=== PATIENT | male | born 1985 | race Caucasian/White ===

== ENCOUNTER 2018-09-26 20:24 | Emergency (ER) | payer SELFPAY ==
[~2018-09-26] VITALS: Ht 177.8 cm; Wt 117.9 kg
[~2018-09-26 20:24] MED LIST: ACTOS15 MG PO; HUMULIN R100 U/ML; LIPITOR20 MG PO; LISINOPRIL10 MG PO; NORCO 325 MG-51 TAB PO; PARAFON FORTE500 MG PO; TOBREX OPHTH S2.5 ML OPH
[2018-09-26 20:28] VITALS: BP 164/98
[2018-09-26 20:58] LABS: BILIRUBIN NEGATIVE (NEGATIVE); BLOOD 2+ (NEGATIVE); CLARITY CLEAR (CLEAR); COLOR YELLOW (YELLOW); GLUCOSE 2+ (NEGATIVE); KETONE NEGATIVE (NEGATIVE); LEUKO ESTERASE NEGATIVE (NEGATIVE); NITRITE NEGATIVE (NEGATIVE); SPECIFIC GRAVITY >= 1.030 (1.005-1.030); UROBILINOGEN 0.2 E.U./dl (0.2-1.0)
[2018-09-26 21:10] LABS: BACTERIA 2+; MUCOUS 1+
[2018-09-26] MEDS ORDERED: CIPRO500 MG PO (21:24)
== END 2018-09-26 21:40 | disposition home or self-care (01) ==
LOC: ED 20:24
PROVIDERS: Physician Assistant
DX: N34.2 Other urethritis (principal); E11.9 Type 2 diabetes mellitus without complications; Z88.0 Allergy status to penicillin; Z79.4 Long term (current) use of insulin

== ENCOUNTER 2020-02-12 16:46 | Emergency (ER) | payer SELFPAY ==
[~2020-02-12] VITALS: Ht 175.2 cm
[~2020-02-12 16:46] MED LIST changes: +CIPRO500 MG PO
[2020-02-12 16:56] VITALS: BP 183/98
[2020-02-12] MEDS ORDERED: ROBAXIN-750750 MG PO (21:43)
[2020-02-12] MEDS ORDERED: IBUPROFEN600 MG PO (21:43)
== END 2020-02-12 22:13 | disposition home or self-care (01) ==
LOC: ED 16:46
DX: S13.9XXA Sprain of joints and ligaments of unspecified parts of neck, initial encounter (principal); M25.512 Pain in left shoulder; Z88.0 Allergy status to penicillin; X50.0XXA Overexertion from strenuous movement or load, initial encounter; Y93.89 Activity, other specified; Y92.89 Other specified places as the place of occurrence of the external cause; Y99.8 Other external cause status

== ENCOUNTER 2020-03-30 09:05 | Emergency (ER) | payer SELFPAY ==
[~2020-03-30] VITALS: Ht 177.8 cm; Wt 117.9 kg
[~2020-03-30 09:05] MED LIST changes: +IBUPROFEN600 MG PO; +ROBAXIN-750750 MG PO
[2020-03-30 09:12] VITALS: BP 156/72
[2020-03-30] MEDS ORDERED: PREDNISONE50 MG PO (10:17)
[2020-03-30] MEDS ORDERED: CYCLOBENZAPRINE5 M3 PO (10:17)
== END 2020-03-30 10:53 | disposition home or self-care (01) ==
LOC: ED 09:05
DX: S46.912A Strain of unspecified muscle, fascia and tendon at shoulder and upper arm level, left arm, initial encounter (principal); Z88.0 Allergy status to penicillin; X58.XXXA Exposure to other specified factors, initial encounter; Y93.89 Activity, other specified; Y92.89 Other specified places as the place of occurrence of the external cause; Y99.8 Other external cause status

== ENCOUNTER 2020-06-09 06:12 | Inpatient (IN) | payer MEDICAID ==
[~2020-06-09] VITALS: Ht 177.8 cm; Wt 107.6 kg
[~2020-06-09 06:12] MED LIST changes: +CYCLOBENZAPRINE5 M3 PO; -HUMULIN R100 U/ML; +HUMULIN R100 UNIT/1 SQ; +PREDNISONE50 MG PO
[2020-06-09 06:26] VITALS: BP 168/100
[2020-06-09 06:52] LABS: BASO % 0.6 % (0.0-1.0); EOS # 0.1 10*3/uL (0.0-0.4); EOS % 2.4 % (1.0-4.0); HEMATOCRIT 43.6 % (42.0-52.0); LYMPH # 1.4 10*3/uL (1.3-4.4); LYMPH % 26.6 % (27.0-41.0); MEAN CELL VOLUME 78.8 fl (80.0-94.0); MEAN CORPUSCULAR HGB 25.7 pg (27.0-31.0); MEAN CORPUSCULAR HGB CONC 32.6 g/dl (33.0-37.0); MEAN PLATELET VOLUME 9.4 fl (9.6-12.3); MONO # 0.6 10*3/uL (0.1-1.0); MONO % 10.7 % (3.0-9.0); NEUT # 3.2 10*3/uL (2.3-7.9); NEUT % 59.3 % (47.0-73.0); PLATELET COUNT AUTOMATED 422 10*3/uL (130-400); RED BLOOD COUNT 5.53 10*6/uL (4.50-5.90); RED CELL DISTRI WIDTH 12.9 % (0-14.5); WHITE BLOOD COUNT 5.3 10*3/uL (4.8-10.8)
[2020-06-09 07:08] LABS: ALBUMIN 2.7 gm/dl (3.1-4.5); ALKALINE PHOSPHATASE 70 U/L (45-117); BUN 14 mg/dl (7-24); CHLORIDE 104 mmol/L (98-107); CREATININE 0.86 mg/dL (0.70-1.30); SGOT/AST 13 IU/L (3-35); SGPT/ALT 30 U/L (12-78); SODIUM 137 mmol/L (136-145); TOTAL PROTEIN 6.3 gm/dL (6.4-8.2)
[2020-06-09 07:11] LABS: TROPONIN I 0.107 ng/ml (<0.045)
[2020-06-09 08:27] VITALS: BP 163/95
[2020-06-09 11:08] VITALS: BP 145/94
[2020-06-09 12:44] LABS: ACT PARTIAL THROMBO TIME 27.9 SECONDS (20.0-32.1)
[2020-06-09 16:00] VITALS: BP 145/72
[2020-06-09 20:00] VITALS: BP 145/87
[2020-06-10] VITALS: BP 148/92
[2020-06-10 06:21] LABS: BASO % 0.5 % (0.0-1.0); EOS # 0.1 10*3/uL (0.0-0.4); EOS % 1.9 % (1.0-4.0); LYMPH # 1.6 10*3/uL (1.3-4.4); LYMPH % 27.7 % (27.0-41.0); MEAN CELL VOLUME 80.4 fl (80.0-94.0); MEAN CORPUSCULAR HGB CONC 32.3 g/dl (33.0-37.0); MEAN PLATELET VOLUME 9.7 fl (9.6-12.3); MONO # 0.6 10*3/uL (0.1-1.0); MONO % 11.3 % (3.0-9.0); NEUT # 3.3 10*3/uL (2.3-7.9); NEUT % 58.4 % (47.0-73.0); PLATELET COUNT AUTOMATED 383 10*3/uL (130-400); RED BLOOD COUNT 5.35 10*6/uL (4.50-5.90); RED CELL DISTRI WIDTH 13.1 % (0-14.5); WHITE BLOOD COUNT 5.7 10*3/uL (4.8-10.8)
[2020-06-10 06:29] LABS: ALBUMIN 2.5 gm/dl (3.1-4.5); CHLORIDE 105 mmol/L (98-107); CHOLESTEROL 143 mg/dL (<200); CREATININE 0.85 mg/dL (0.70-1.30); POTASSIUM 4.7 mmol/L (3.5-5.1); SGOT/AST 13 IU/L (3-35); SGPT/ALT 23 U/L (12-78); SODIUM 135 mmol/L (136-145)
[2020-06-10 06:35] LABS: ALKALINE PHOSPHATASE 69 U/L (45-117); BUN 14 mg/dl (7-24); CPK 71 U/L (39-308); HDL CHOLESTEROL 33 mg/dl (40-60); LDH 177 U/L (87-241); LDL CHOLESTEROL 77 mg/dL (9-159); TOTAL PROTEIN 5.5 gm/dL (6.4-8.2); TRIGLYCERIDES 163 mg/dl (<150); VLDL CHOLESTEROL 33 mg/dL (6-40)
[2020-06-10 07:14] LABS: FERRITIN 206.3 ng/mL (22.0-322.0); VITAMIN D, 25-HYDROXY 15.4 ng/mL (30-100)
[2020-06-10 08:00] VITALS: BP 145/81
[2020-06-10 12:00] VITALS: BP 138/77
[2020-06-10 16:00] VITALS: BP 138/84
[2020-06-10 20:00] VITALS: BP 144/81
[2020-06-11] VITALS: BP 145/84
[2020-06-11 06:36] LABS: BASO % 0.5 % (0.0-1.0); EOS # 0.1 10*3/uL (0.0-0.4); EOS % 1.8 % (1.0-4.0); HEMATOCRIT 43.2 % (42.0-52.0); LYMPH # 1.5 10*3/uL (1.3-4.4); MEAN CELL VOLUME 77.7 fl (80.0-94.0); MEAN CORPUSCULAR HGB 25.5 pg (27.0-31.0); MEAN CORPUSCULAR HGB CONC 32.9 g/dl (33.0-37.0); MEAN PLATELET VOLUME 9.7 fl (9.6-12.3); MONO # 0.7 10*3/uL (0.1-1.0); MONO % 10.4 % (3.0-9.0); NEUT # 4.2 10*3/uL (2.3-7.9); NEUT % 64.1 % (47.0-73.0); PLATELET COUNT AUTOMATED 404 10*3/uL (130-400); RED BLOOD COUNT 5.56 10*6/uL (4.50-5.90); RED CELL DISTRI WIDTH 12.7 % (0-14.5); WHITE BLOOD COUNT 6.6 10*3/uL (4.8-10.8)
[2020-06-11 06:55] LABS: ALBUMIN 2.6 gm/dl (3.1-4.5); CHLORIDE 102 mmol/L (98-107); POTASSIUM 4.4 mmol/L (3.5-5.1); SODIUM 133 mmol/L (136-145)
[2020-06-11 07:01] LABS: ALKALINE PHOSPHATASE 72 U/L (45-117); BUN 20 mg/dl (7-24); CREATININE 0.91 mg/dL (0.70-1.30); LDH 135 U/L (87-241); SGOT/AST 7 IU/L (3-35); SGPT/ALT 22 U/L (12-78)
[2020-06-11 07:03] LABS: CPK 44 U/L (39-308)
[2020-06-11] MEDS ORDERED: METOPROLOL SUCC50 M1 PO ×3 (07:44→08:05)
[2020-06-11] MEDS ORDERED: LISINOPRIL10 M1 PO ×3 (07:44→08:05)
[2020-06-11] MEDS ORDERED: ASPIRIN ADULT L81 M2 PO ×3 (07:44→08:05)
[2020-06-11] MEDS ORDERED: ATORVASTATIN CA40 M1 PO ×3 (07:44→08:04)
[2020-06-11] MEDS ORDERED: Vitamin D (50,000 UN PO (07:44)
[2020-06-11] MEDS ORDERED: VITAMIN D31250 MCG PO ×2 (07:46)
[2020-06-11 08:00] VITALS: BP 101/54
[2020-06-11] MEDS ORDERED: HUMULIN R100 UNIT/1 SQ (08:05)
[2020-06-11 08:30] VITALS: BP 108/60
== END 2020-06-11 10:55 | disposition short-term general hospital (02) | DRG 280 ==
LOC: ED 06:12 → 4E 08:10 → EDHOLD 08:10 → 4E 08:48 → 5E 06-10 18:33
PROVIDERS: Internal Medicine; Registered Nurse; ADMIT Student in an Organized Health Care Education/Training Program; ATTEND Student in an Organized Health Care Education/Training Program
DX: I21.4 Non-ST elevation (NSTEMI) myocardial infarction (principal); E43 Unspecified severe protein-calorie malnutrition; I42.9 Cardiomyopathy, unspecified; Z20.822 Contact with and (suspected) exposure to COVID-19; R77.8 Other specified abnormalities of plasma proteins; I45.10 Unspecified right bundle-branch block; I10 Essential (primary) hypertension; D47.3 Essential (hemorrhagic) thrombocythemia; E10.65 Type 1 diabetes mellitus with hyperglycemia; Z88.0 Allergy status to penicillin; Z82.49 Family history of ischemic heart disease and other diseases of the circulatory system; Z68.35 Body mass index [BMI] 35.0-35.9, adult

== ENCOUNTER 2020-07-05 00:57 | Observation (INO) | payer MEDICAID ==
[2020-07-05] VITALS (8 sets, daily range): BP systolic 137–156; BP diastolic 72–81
[~2020-07-05] VITALS: Ht 177.8 cm; Wt 109.4 kg
[~2020-07-05 00:57] MED LIST changes: +ASPIRIN ADULT L81 M2 PO; +ATORVASTATIN CA40 M1 PO; +LISINOPRIL10 M1 PO; +METOPROLOL SUCC50 M1 PO; +VITAMIN D31250 MCG PO; +Vitamin D (50,000 UN PO
[2020-07-05 01:21] LABS: BASO # 0.1 10*3/uL (0.0-0.1); BASO % 0.7 % (0.0-1.0); EOS # 0.3 10*3/uL (0.0-0.4); EOS % 2.8 % (1.0-4.0); HEMATOCRIT 34.6 % (42.0-52.0); LYMPH # 1.6 10*3/uL (1.3-4.4); LYMPH % 18.2 % (27.0-41.0); MEAN CORPUSCULAR HGB 26.5 pg (27.0-31.0); MEAN CORPUSCULAR HGB CONC 32.4 g/dl (33.0-37.0); MEAN PLATELET VOLUME 8.8 fl (9.6-12.3); MONO # 0.8 10*3/uL (0.1-1.0); MONO % 8.6 % (3.0-9.0); NEUT # 6.2 10*3/uL (2.3-7.9); NEUT % 69.2 % (47.0-73.0); PLATELET COUNT AUTOMATED 505 10*3/uL (130-400); RED BLOOD COUNT 4.22 10*6/uL (4.50-5.90); RED CELL DISTRI WIDTH 13.7 % (0-14.5); WHITE BLOOD COUNT 8.9 10*3/uL (4.8-10.8)
[2020-07-05 01:32] LABS: ACT PARTIAL THROMBO TIME 25.6 SECONDS (20.0-32.1)
[2020-07-05 01:41] LABS: ALBUMIN 3.1 gm/dl (3.1-4.5); ALKALINE PHOSPHATASE 120 U/L (45-117); BUN 35 mg/dl (7-24); CHLORIDE 107 mmol/L (98-107); POTASSIUM 4.2 mmol/L (3.5-5.1); SGOT/AST 17 IU/L (3-35); SGPT/ALT 35 U/L (12-78); SODIUM 139 mmol/L (136-145); TOTAL PROTEIN 7.1 gm/dL (6.4-8.2)
[2020-07-05 01:44] LABS: TROPONIN I 0.037 ng/ml (<0.045)
[2020-07-05] MEDS ORDERED: LANTUS SOL100 UNIT/1 SC (05:11)
[2020-07-05] MEDS ORDERED: HUMALOG100 UNIT/2 SC ×3 (05:15→05:18)
[2020-07-05] MEDS ORDERED: COLACE100 MG PO (05:19)
[2020-07-05] MEDS ORDERED: VITAMIN C1000 M5 PO (05:19)
[2020-07-05] MEDS ORDERED: PLAVIX75 M1 PO (05:19)
[2020-07-05] MEDS ORDERED: IRON325 M1 PO (05:21)
[2020-07-05] MEDS ORDERED: LASIX20 MG PO (05:22)
[2020-07-05] MEDS ORDERED: IMDUR SA30 MG PO (05:23)
[2020-07-05] MEDS ORDERED: PROTONIX40 MG PO (05:24)
[2020-07-05] MEDS ORDERED: FLOMAX0.4 MG PO (05:24)
[2020-07-05] MEDS ORDERED: HYDROCODON-ACE1 EACH PO (05:26)
[2020-07-05] MEDS ORDERED: PROBIOTIC1 EAC2 PO (05:27)
[2020-07-05 05:31] LABS: BUN 34 mg/dl (7-24); CHLORIDE 108 mmol/L (98-107); CREATININE 0.99 mg/dL (0.70-1.30); POTASSIUM 4.2 mmol/L (3.5-5.1); SGOT/AST 16 IU/L (3-35); SGPT/ALT 32 U/L (12-78); SODIUM 140 mmol/L (136-145)
[2020-07-05 05:33] LABS: ALKALINE PHOSPHATASE 112 U/L (45-117); TOTAL PROTEIN 6.8 gm/dL (6.4-8.2)
[2020-07-05] MEDS ORDERED: PACERONE200 MG PO (05:34)
[2020-07-05 06:15] LABS: BASO # 0.1 10*3/uL (0.0-0.1); BASO % 0.5 % (0.0-1.0); EOS # 0.3 10*3/uL (0.0-0.4); EOS % 2.7 % (1.0-4.0); HEMATOCRIT 33.8 % (42.0-52.0); LYMPH # 1.4 10*3/uL (1.3-4.4); LYMPH % 15.4 % (27.0-41.0); MEAN CORPUSCULAR HGB 26.3 pg (27.0-31.0); MEAN CORPUSCULAR HGB CONC 31.7 g/dl (33.0-37.0); MEAN PLATELET VOLUME 9.2 fl (9.6-12.3); MONO # 0.8 10*3/uL (0.1-1.0); MONO % 8.1 % (3.0-9.0); NEUT # 6.7 10*3/uL (2.3-7.9); NEUT % 72.9 % (47.0-73.0); PLATELET COUNT AUTOMATED 442 10*3/uL (130-400); RED BLOOD COUNT 4.07 10*6/uL (4.50-5.90); RED CELL DISTRI WIDTH 13.6 % (0-14.5); WHITE BLOOD COUNT 9.2 10*3/uL (4.8-10.8)
[2020-07-05 06:20] LABS: ACT PARTIAL THROMBO TIME 24.2 SECONDS (20.0-32.1); INTERNATIONAL NORM RATIO 0.9 (2.0-3.5)
[2020-07-05] MEDS ORDERED: METOPROLOL SUCC50 M1 PO (07:33)
[2020-07-06] VITALS: BP 136/71
[2020-07-06 08:00] VITALS: BP 148/76
[2020-07-06 12:00] VITALS: BP 151/78
[2020-07-06 16:00] VITALS: BP 119/73
[2020-07-06] MEDS ORDERED: LANTUS SOL100 UNIT/1 SC (16:16)
[2020-07-06] MEDS ORDERED: HUMALOG100 UNIT/2 SC (16:16)
[2020-07-06] MEDS ORDERED: COLCHICINE0.6 M2 PO (16:16)
== END 2020-07-06 17:09 | disposition home or self-care (01) ==
LOC: ED 00:57 → 5E 03:29 → EDHOLD 03:29 → 5E 03:41
PROVIDERS: Emergency Medicine; Hospitalist; ADMIT Internal Medicine; ATTEND Internal Medicine
DX: R07.89 Other chest pain (principal); D64.9 Anemia, unspecified; D47.3 Essential (hemorrhagic) thrombocythemia; E11.65 Type 2 diabetes mellitus with hyperglycemia; R74.8 Abnormal levels of other serum enzymes; I11.0 Hypertensive heart disease with heart failure; I50.20 Unspecified systolic (congestive) heart failure; E78.5 Hyperlipidemia, unspecified; I25.10 Atherosclerotic heart disease of native coronary artery without angina pectoris; Z79.82 Long term (current) use of aspirin; Z79.4 Long term (current) use of insulin; Z79.899 Other long term (current) drug therapy

== ENCOUNTER → 2020-08-07 | Outpatient (CLI) | payer MEDICAID ==
[~2020-08-07] MED LIST changes: +COLACE100 MG PO; +COLCHICINE0.6 M2 PO; +FLOMAX0.4 MG PO; +HUMALOG100 UNIT/2 SC; +HYDROCODON-ACE1 EACH PO; +IMDUR SA30 MG PO; +IRON325 M1 PO; +LANTUS SOL100 UNIT/1 SC; +LASIX20 MG PO; +PACERONE200 MG PO; +PLAVIX75 M1 PO; +PROBIOTIC1 EAC2 PO; +PROTONIX40 MG PO; +VITAMIN C1000 M5 PO
== END | disposition home or self-care (01) ==
LOC: RESCLI 02:49
PROVIDERS: ATTEND Internal Medicine
DX: I31.9 Disease of pericardium, unspecified (principal); I10 Essential (primary) hypertension; E10.9 Type 1 diabetes mellitus without complications; I25.10 Atherosclerotic heart disease of native coronary artery without angina pectoris; Z79.82 Long term (current) use of aspirin; Z79.899 Other long term (current) drug therapy; Z95.1 Presence of aortocoronary bypass graft; Z88.0 Allergy status to penicillin; Z88.8 Allergy status to other drugs, medicaments and biological substances